=== PATIENT | female | born 1955 | race Asian ===

== ENCOUNTER 2020-09-05 12:53 | Day surgery (SDC) | payer MEDICARE, OTHER ==
[~2020-09-05] VITALS: Ht 154.9 cm; Wt 57.0 kg
[~2020-09-05 12:53] MED LIST: MV-M1TAB16 PO; collagen PO; ursodiol PO
[2020-09-05 13:12] VITALS: BP 134/99
[2020-09-05] MEDS ORDERED: CHLORHEXIDINE 15 ML UDC PO ONE (13:30)
[2020-09-05] MEDS ORDERED: LACTATED RINGERS 1,000 ML IV SCH (13:30)
[2020-09-05] MEDS ORDERED: BUPIVACAINE/PF 0.5% ONE (14:10)
[2020-09-05] MEDS ORDERED: FENTANYL PF 100 MCG/2ML ONE (14:12)
[2020-09-05] MEDS ORDERED: MIDAZOLAM 1 MG/ML, 2ML ONE (14:12)
[2020-09-05] MEDS ORDERED: ONDANSETRON 2MG/ML, 2ML ONE (15:56)
[2020-09-05] MEDS ORDERED: CEFAZOLIN 1,000 MG ONE (15:56)
[2020-09-05] MEDS ORDERED: PROPOFOL 10 MG/ML, 20ML ONE (15:56)
[2020-09-05] MEDS ORDERED: DEXAMETHASONE 4 MG/ML, 1ML ONE (15:56)
[2020-09-05] MEDS ORDERED: KETOROLAC 30 MG/1 ML ONE (15:59)
[2020-09-05] MEDS ORDERED: ACETAMINOPHEN 325 MG TABLET PO PRN (16:30)
[2020-09-05] MEDS ORDERED: PROMETHAZINE 25 MG/ML, 1ML IVPush PRN (16:30)
[2020-09-05] MEDS ORDERED: FENTANYL PF 100 MCG/2ML IV PRN (16:30)
[2020-09-05] MEDS ORDERED: LORazepam 2 MG/ML, 1ML IVPush PRN (16:30)
[2020-09-05] MEDS ORDERED: ONDANSETRON 2MG/ML, 2ML IVPush PRN (16:30)
[2020-09-05] MEDS ORDERED: PROMETHAZINE 25 MG SUPP PR PRN (16:30)
[2020-09-05] MEDS ORDERED: HYDROmorphone 1 MG/ML, 1ML INJ IVPush PRN (16:30)
[2020-09-05] MEDS ORDERED: OXYcodone 5 MG/5 ML ORAL.SOL UDC PO PRN (16:30)
== END 2020-09-05 17:15 | disposition home or self-care (01) ==
LOC: OUT 12:53
PROVIDERS: ATTEND Orthopaedic Surgery
DX: S52.572A Other intraarticular fracture of lower end of left radius, initial encounter for closed fracture (principal); G89.18 Other acute postprocedural pain; Z20.822 Contact with and (suspected) exposure to COVID-19; Z79.899 Other long term (current) drug therapy; W01.0XXA Fall on same level from slipping, tripping and stumbling without subsequent striking against object, initial encounter; Y93.89 Activity, other specified; Y92.89 Other specified places as the place of occurrence of the external cause; Y99.8 Other external cause status
CPT/HCPCS: 25608; 64415; 73110; 93005; C1713; C1776; J0690; J1100; J1885; J2250; J2405; J2704; J3010; J7120; U0003; 76000